=== PATIENT | male | born 1970 | race Caucasian/White ===

== ENCOUNTER 2018-07-31 14:30 | Emergency (ER) | payer OTHER ==
[~2018-07-31] VITALS: Ht 170.2 cm; Wt 93.4 kg
[2018-07-31 14:33] VITALS: Ht 170.2 cm; Wt 93.4 kg
[2018-07-31 16:06] VITALS: BP 149/58
== END 2018-07-31 16:13 | disposition home or self-care (01) ==
LOC: ED 14:30
DX: J20.9 Acute bronchitis, unspecified (principal)
CPT/HCPCS: 99406

== ENCOUNTER 2020-08-06 20:47 | Emergency (ER) | payer OTHER ==
[~2020-08-06] VITALS: Ht 170.2 cm; Wt 103.0 kg
[2020-08-06 21:14] VITALS: Ht 170.2 cm; Wt 103.0 kg
[2020-08-06 22:28] VITALS: BP 138/96
== END 2020-08-06 22:28 | disposition home or self-care (01) ==
LOC: ED 20:47
DX: S61.215A Laceration without foreign body of left ring finger without damage to nail, initial encounter (principal); W45.8XXA Other foreign body or object entering through skin, initial encounter; Y93.89 Activity, other specified; Y92.89 Other specified places as the place of occurrence of the external cause; Y99.8 Other external cause status
CPT/HCPCS: 90715; Q0092